=== PATIENT | female | born 1990 | race Caucasian/White ===

== ENCOUNTER 2023-07-16 11:37 | Outpatient (REF) | payer OTHER, SELFPAY | END 2023-07-16 11:38 | disposition home or self-care (01) | LOC: LAB 11:37 | PROVIDERS: Visit Provider Obstetrics & Gynecology | DX: L91.8 Other hypertrophic disorders of the skin (principal); D28.0 Benign neoplasm of vulva | CPT/HCPCS: 88304; 88305 ==